=== PATIENT | female | born 1990 | race Caucasian/White ===

== ENCOUNTER → 2017-01-24 | Outpatient (CLI) | payer OTHER ==
[2017-01-24 14:16] LABS: BASO % 0.9 % (0.0-1.0); EOS # 0.2 K/mm3 (0.0-0.50); EOS % 4.2 % (0.0-3.0); LYMPH # 1.8 K/mm3 (1.5-6.5); LYMPH % 34.6 % (24.0-44.0); MEAN CORPUSCULAR HEMOGLOBIN 30.2 pg (27.0-33.0); MEAN CORPUSCULAR HGB CONC 33.7 g/dl (32.0-36.5); MEAN CORPUSCULAR VOLUME 89.6 fl (80.0-96.0); MONO # 0.2 K/mm3 (0.0-0.8); MONO % 4.6 % (0.0-5.0); NEUTROPHILS # 2.8 K/mm3 (1.8-7.7); NEUTROPHILS % 53.1 % (36.0-66.0); RED CELL DISTRIBUTION WIDTH 12.9 % (11.5-14.5); WHITE BLOOD COUNT 5.2 K/mm3 (4.0-10.0)
[2017-01-24 14:39] LABS: VITAMIN B12 LEVEL 688 PG/ML (247-911)
[2017-01-24 14:43] LABS: ALBUMIN 3.9 GM/DL (3.2-5.2); ALBUMIN/GLOBULIN RATIO 1.11 (1.00-1.93); ALKALINE PHOSPHATASE 53 U/L (45-117); ALT/SGPT 19 U/L (12-78); ANION GAP 7 MEQ/L (8-16); AST/SGOT 18 U/L (15-37); BILIRUBIN,TOTAL 0.6 MG/DL (0.2-1.0); BLOOD UREA NITROGEN 18 MG/DL (7-18); CALCIUM LEVEL 8.6 MG/DL (8.5-10.1); CARBON DIOXIDE LEVEL 28 MEQ/L (21-32); CHLORIDE LEVEL 103 MEQ/L (98-107); CHOLESTEROL LEVEL 194 MG/DL (<200); CREATININE FOR GFR 0.83 MG/DL (0.55-1.02); FREE T4 0.82 NG/DL (0.76-1.46); GLOMERULAR FILTRATION RATE > 60.0 (>60); GLUCOSE, FASTING 80 MG/DL (70-105); POTASSIUM SERUM 3.9 MEQ/L (3.5-5.1); SODIUM LEVEL 138 MEQ/L (136-145); TOTAL IRON BINDING CAPACITY 339 UG/DL (250-450); TOTAL PROTEIN 7.4 GM/DL (6.4-8.2); TRIGLYCERIDES LEVEL 70 MG/DL (<150)
== END ==
LOC: EDBD 11:44 → M LRY 11:44
PROVIDERS: ATTEND Physician Assistant
DX: Z00.00 Encounter for general adult medical examination without abnormal findings (principal); K51.90 Ulcerative colitis, unspecified, without complications

== ENCOUNTER → 2017-08-07 | Outpatient (CLI) | payer OTHER ==
[2017-08-07 10:52] LABS: HEMATOCRIT 32.4 % (36.0-47.0); MEAN CORPUSCULAR VOLUME 94.2 fl (80.0-96.0); PLATELET COUNT, AUTOMATED 279 10^3/uL (150-450); RED BLOOD COUNT 3.44 10^6/uL (4.00-5.40); RED CELL DISTRIBUTION WIDTH 14.1 % (11.5-14.5); WHITE BLOOD COUNT 10.1 10^3/uL (4.0-10.0)
[2017-08-07 11:14] LABS: GLUCOSE CHALLENGE TEST 1 HOUR 84 MG/DL (LESS THAN 140)
== END ==
LOC: M SMT 08:05
DX: Z36.89 Encounter for other specified antenatal screening (principal); Z3A.00 Weeks of gestation of pregnancy not specified
CPT/HCPCS: 82950

== ENCOUNTER → 2017-10-13 | Outpatient (REF) | payer OTHER | LOC: M SFHCLERA 10:57 | DX: R50.9 Fever, unspecified (principal) ==

== ENCOUNTER → 2017-10-19 | Outpatient (REF) | payer OTHER | LOC: M LAB REF 16:56 | DX: Z34.83 Encounter for supervision of other normal pregnancy, third trimester (principal); Z3A.00 Weeks of gestation of pregnancy not specified | CPT/HCPCS: 87186 ==

== ENCOUNTER 2017-11-10 16:01 | Inpatient (IN) | payer OTHER ==
[2017-11-10] MEDS: FENTANYL/ROPIVACAINE/NACL BAG 200 ML EPIDURAL
[2017-11-10] MEDS: LACTATED RINGER'S 1000 ML IV (17:02)
[2017-11-10] MEDS: miSOPROStol 50 MCG 1/2 TAB (S0191) SL (17:18)
[2017-11-10 17:31] LABS: HEMOGLOBIN 10.2 g/dl (12.0-15.5); MEAN CORPUSCULAR HEMOGLOBIN 30.4 pg (27.0-33.0); MEAN CORPUSCULAR VOLUME 89.3 fl (80.0-96.0); PLATELET COUNT, AUTOMATED 306 10^3/uL (150-450); RED BLOOD COUNT 3.36 10^6/uL (4.00-5.40); RED CELL DISTRIBUTION WIDTH 13.5 % (11.5-14.5); WHITE BLOOD COUNT 11.1 10^3/uL (4.0-10.0)
[2017-11-10] MEDS: LR 1,000 ML IV (20:45)
[2017-11-10] MEDS: PENICILLIN G POTASSIUM IV 5 MU in D5W MINI-BAG PLUS 100 ML IV (21:00)
[2017-11-10] MEDS ORDERED: PENICILLIN G POTASSIUM 5 MU VIAL As Ordered (21:01)
[2017-11-10] MEDS: OXYTOCIN DRIP 30 UNITS in APPROPRIATE DILUENT 1 EA IV (22:18)
[2017-11-10] MEDS ORDERED: FENTANYL 2MCG/ML ROPIVACAINE 0.2% IN 0.9% NACL 200ML IVBAG As Ordered (23:40)
[2017-11-10] MEDS ORDERED: ePHEDrine SULFATE 25 MG/5 ML(5MG/ML) SYRINGE IV (23:43)
[2017-11-10] MEDS ORDERED: ONDANSETRON 4MG/2ML VIAL (J2405) IV (23:43)
[2017-11-10] MEDS ORDERED: REFRIGERATOR IV KEYS XX (23:43)
[2017-11-10] MEDS ORDERED: diphenhydrAMINE INJ 50MG/ML VIAL (J1200) IV (23:43)
[2017-11-10] MEDS ORDERED: NALOXONE INJ 0.4 MG/1 ML VIAL (J2310) IV (23:43)
[2017-11-10] MEDS ORDERED: LACTATED RINGER'S 1000 ML IV (23:43)
[2017-11-10] MEDS ORDERED: EPIDURAL/PCA KEYS XX (23:43)
[2017-11-10] MEDS ORDERED: EPIDURAL COMMENT XX (23:43)
[2017-11-11] MEDS: PENICILLIN G POTASSIUM IV 2.5 MU in D5W 100 ML IV (01:00)
[2017-11-11] MEDS ORDERED: METHYLERGONOVINE MALEATE 0.2 MG TAB PO (03:30)
[2017-11-11] MEDS ORDERED: DIBUCAINE 1% OINTMENT 30GM TOP (03:30)
[2017-11-11] MEDS ORDERED: MOM 30ML SUSPENSION UDC PO (03:30)
[2017-11-11] MEDS ORDERED: DOCUSATE SODIUM 100 MG CAP PO (03:30)
[2017-11-11] MEDS: IBUPROFEN 800 MG TAB PO ×2 (08:08→18:16)
[2017-11-11] MEDS: PRENATAL VITAMINS CHEWABLE TABLET PO (08:08)
[2017-11-11] MEDS: ACETAMINOPHEN 500 MG TAB PO (14:28)
[2017-11-11] MEDS: MEASLES,MUMPS,RUBELLA VACCINE INJ (MMR-II) (90707) SC (15:17)
[2017-11-11] MEDS: RHOGAM 300 MCG (1500 IU) INJ (J2790) IM (15:17)
[2017-11-12] MEDS: IBUPROFEN 800 MG TAB PO (05:59)
[2017-11-12] MEDS: PRENATAL VITAMINS CHEWABLE TABLET PO (07:47)
== END 2017-11-12 17:15 | disposition home or self-care (01) | DRG 775 ==
LOC: M LDI 16:01 → M OBS 11-11 05:54
PROVIDERS: Advanced Practice Midwife
PROC: 3E0DXGC Introduction of Other Therapeutic Substance into Mouth and Pharynx, External Approach (ICD-10-PCS; 2017-11-10)
PROC: 10E0XZZ Delivery of Products of Conception, External Approach (ICD-10-PCS; principal; 2017-11-11)
PROC: 10907ZC Drainage of Amniotic Fluid, Therapeutic from Products of Conception, Via Natural or Artificial Opening (ICD-10-PCS; 2017-11-11)
DX: O48.0 Post-term pregnancy (principal); Z37.0 Single live birth; K90.0 Celiac disease; Z79.899 Other long term (current) drug therapy; O99.824 Streptococcus B carrier state complicating childbirth; Z3A.40 40 weeks gestation of pregnancy; Z90.49 Acquired absence of other specified parts of digestive tract; O99.62 Diseases of the digestive system complicating childbirth

== ENCOUNTER → 2017-12-22 | Outpatient (CLI) | payer OTHER ==
[2017-12-22 18:16] LABS: FREE T4 0.84 NG/DL (0.76-1.46); THYROID STIMULATING HORMONE 0.682 uIU/ML (0.358-3.740)
[2017-12-22 18:17] LABS: TOTAL 25(OH) VITAMIN D 26.1 NG/ML (30.0-100.0)
== END ==
LOC: M SMT 14:38
DX: F32.89 Other specified depressive episodes (principal)
CPT/HCPCS: 84443

== ENCOUNTER → 2018-04-18 | Outpatient (REF) | payer OTHER | LOC: M LAB REF 17:28 | DX: Z12.4 Encounter for screening for malignant neoplasm of cervix (principal) | CPT/HCPCS: G0123 ==

== ENCOUNTER 2018-07-13 10:02 | Day surgery (SDC) | payer OTHER ==
[~2018-07-13] VITALS: Ht 162.6 cm; Wt 43.1 kg
[~2018-07-13 10:02] MED LIST: IBUP-1114 PO; MAPA500T2 PO; NS 1,000 ML IV ONE; PRENTAB9 PO; RANI150T PO
[2018-07-13] MEDS ORDERED: fentaNYL 100 MCG/2 ML INJECTION (J3010) As Ordered ONE (10:56)
[2018-07-13] MEDS ORDERED: PROPOFOL 500 MG/50 ML VIAL As Ordered ONE (10:56)
[2018-07-13] MEDS ORDERED: LIDOCAINE 2% INJ 100 MG/5 ML SDV (FOR ANES.) As Ordered ONE (10:59)
--- NOTE | 2018-07-13 12:52 | ROOR ---
Patient Name: Vero Altman Procedure Date: 07/13/2018 11:57 AM Date of : 08/21/1989 Age: 28 Room: [facility] Gender: Female Note Status: Finalized Procedure: Upper GI endoscopy Indications: Suspected celiac disease, Follow-up of celiac disease Providers: Sam Antunez MD Referring MD: ARIEL MORAN MD Requesting Provider: Medicines: Monitored Anesthesia Care Complications: No immediate complications. Procedure: Pre-Anesthesia Assessment: - Prior to the procedure, a History and Physical was performed, and patient medications and allergies were reviewed. The patient is competent. The risks and benefits of the procedure and the sedation options and risks were discussed with the patient. All questions were answered and informed consent was obtained. Patient identification and proposed procedure were verified by the physician, the nurse and the anesthesiologist in the procedure room. Mental Status Examination: alert and oriented. Airway Examination: normal oropharyngeal airway and neck mobility. Respiratory Examination: clear to auscultation. CV Examination: normal. Prophylactic Antibiotics: The patient does not require prophylactic antibiotics. Prior Anticoagulants: The patient has taken no previous anticoagulant or antiplatelet agents. ASA Grade Assessment: II - A patient with mild systemic disease. After reviewing the risks and benefits, the patient was deemed in satisfactory condition to undergo the procedure. The anesthesia plan was to use monitored anesthesia care (MAC). Immediately prior to administration of medications, the patient was re-assessed for adequacy to receive sedatives. The heart rate, respiratory rate, oxygen saturations, blood pressure, adequacy of pulmonary ventilation, and response to care were monitored throughout the procedure. The physical status of the patient was re-assessed after the procedure. The Endoscope was introduced through the mouth, and advanced to the second part of duodenum. The upper GI endoscopy was accomplished without difficulty. The patient tolerated the procedure well. Findings: LA Grade A (one or more mucosal breaks less than 5 mm, not extending between tops of 2 mucosal folds) esophagitis with no bleeding was found 40 cm from the incisors. Biopsies were taken with a cold forceps for histology. Verification of patient identification for the specimen was done by the physician and nurse using the patient's name, date and medical record number. Estimated blood loss was minimal. The Z-line was irregular and was found 40 cm from the incisors. Patchy mild inflammation characterized by erythema and granularity was found in the gastric body and in the gastric antrum. Biopsies were taken with a cold forceps for Helicobacter pylori testing. The duodenal bulb, second portion of the duodenum, third portion of the duodenum and fourth portion of the duodenum were normal. Biopsies for histology were taken with a cold forceps for evaluation of celiac disease. Impression: - LA Grade A reflux esophagitis. Biopsied. - Z-line irregular, 40 cm from the incisors. - Gastritis. Biopsied. - Normal duodenal bulb, second portion of the duodenum, third portion of the duodenum and fourth portion of the duodenum. Biopsied. Recommendation: - Patient has a contact number available for emergencies. The signs and symptoms of potential delayed complications were discussed with the patient. Return to normal activities tomorrow. Written discharge instructions were provided to the patient. - Resume previous diet. - Continue present medications. - Await pathology results. - Based on the biopsy results you will receive a phone call from GI clinic in 2-3 weeks to review the pathology results AND/OR your results will be faxed to your Primary care physician. - Return to primary care physician. Sam Antunez MD Sam Antunez MD 07/13/2018 12:51:35 PM This report has been signed electronically. Number of Addenda: 0 Note Initiated On: 07/13/2018 11:57 AM Estimated Blood Loss: Estimated blood loss was minimal.
[2018-07-13 13:10] VITALS: BP 106/55
--- NOTE | 2018-07-13 13:27 | ROOR ---
Patient Name: Veor Altman Procedure Date: 07/13/2018 11:58 AM Date of : 08/21/1989 Age: 28 Room: [facility] Gender: Female Note Status: Finalized Procedure: Colonoscopy Indications: Follow-up of ulcerative colitis Providers: Sam Antunez MD Referring MD: ARIEL MORAN MD Requesting Provider: Medicines: Monitored Anesthesia Care Complications: No immediate complications. Procedure: Pre-Anesthesia Assessment: - Prior to the procedure, a History and Physical was performed, and patient medications and allergies were reviewed. The patient is competent. The risks and benefits of the procedure and the sedation options and risks were discussed with the patient. All questions were answered and informed consent was obtained. Patient identification and proposed procedure were verified by the physician, the nurse and the anesthesiologist in the procedure room. Mental Status Examination: alert and oriented. Airway Examination: normal oropharyngeal airway and neck mobility. Respiratory Examination: clear to auscultation. CV Examination: normal. Prophylactic Antibiotics: The patient does not require prophylactic antibiotics. Prior Anticoagulants: The patient has taken no previous anticoagulant or antiplatelet agents. ASA Grade Assessment: II - A patient with mild systemic disease. After reviewing the risks and benefits, the patient was deemed in satisfactory condition to undergo the procedure. The anesthesia plan was to use monitored anesthesia care (MAC). Immediately prior to administration of medications, the patient was re-assessed for adequacy to receive sedatives. The heart rate, respiratory rate, oxygen saturations, blood pressure, adequacy of pulmonary ventilation, and response to care were monitored throughout the procedure. The physical status of the patient was re-assessed after the procedure. The Colonoscope was introduced through the anus and advanced to the terminal ileum, with identification of the appendiceal orifice and IC valve. The colonoscopy was performed without difficulty. The patient tolerated the procedure well. The quality of the bowel preparation was good. The terminal ileum, ileocecal valve, appendiceal orifice, and rectum were photographed. Scope insertion time was 3 minutes. Scope withdrawal time was 9 minutes. The total duration of the procedure was 12 minutes. Findings: The perianal and digital rectal examinations were normal. The terminal ileum appeared normal. Normal mucosa was found in the entire colon. Biopsies for histology were taken with a cold forceps from the right colon, left colon, sigmoid colon and rectum for evaluation of microscopic colitis. Verification of patient identification for the specimen was done by the physician and nurse using the patient's name, date and medical record number. Estimated blood loss was minimal. Non-bleeding external and internal hemorrhoids were found during retroflexion. The hemorrhoids were medium-sized. Impression: - The examined portion of the ileum was normal. - Normal mucosa in the entire examined colon. Biopsied. - Non-bleeding external and internal hemorrhoids. Recommendation: - Patient has a contact number available for emergencies. The signs and symptoms of potential delayed complications were discussed with the patient. Return to normal activities tomorrow. Written discharge instructions were provided to the patient. - Resume previous diet. - Continue present medications. - Await pathology results. - Repeat colonoscopy at age 49 for screening purposes. - Return to GI clinic in [facility] (address [address], [address], [place] [address]) in 4 -- 6 weeks. Please call GI clinic @ [phone] for apppointment date and time. - Return to primary care physician. Sam Antunez MD Sam Antunez MD 07/13/2018 1:27:09 PM This report has been signed electronically. Number of Addenda: 0 Note Initiated On: 07/13/2018 11:58 AM Estimated Blood Loss: Estimated blood loss was minimal.
== END 2018-07-13 13:18 | disposition home or self-care (01) ==
LOC: M OPP 10:02
PROVIDERS: ATTEND Internal Medicine Gastroenterology
DX: K64.8 Other hemorrhoids (principal); K51.90 Ulcerative colitis, unspecified, without complications; K21.0 Gastro-esophageal reflux disease with esophagitis; K22.8 Other specified diseases of esophagus; K29.70 Gastritis, unspecified, without bleeding; K90.0 Celiac disease; Z91.011 Allergy to milk products; Z91.018 Allergy to other foods
CPT/HCPCS: 43239; 45380; 88305; J3010

== ENCOUNTER → 2018-10-03 | Outpatient (CLI) | payer OTHER ==
[~2018-10-03] MED LIST changes: -NS 1,000 ML IV ONE
--- NOTE | 2018-10-03 14:24 | REP ---
ULTRASOUND RIGHT BREAST: Real-time sonographic evaluation of the right breast performed for small palpable abnormality and pain between 10 and 11 o'clock. Ultrasound of that area shows dense fibroglandular tissue without a discrete cystic or solid nodule. IMPRESSION: ACR 2 benign. Dense fibroglandular tissue seen in the 9 to 11 o'clock region of the right breast. No discrete cystic or solid nodule. A negative ultrasound should not deter biopsy if there is a clinically suspicious palpable mass present. Electronically Signed by Rj Roper MD 10/04/2018 12:26 P
== END ==
LOC: M RAD 11:00
PROVIDERS: ATTEND Advanced Practice Midwife
DX: N64.4 Mastodynia (principal)

== ENCOUNTER → 2018-12-19 | Outpatient (CLI) | payer OTHER ==
[2018-12-19 17:33] LABS: HCG, SERUM QUALITATIVE NEGATIVE (NEGATIVE)
== END ==
LOC: M SMT 11:36
PROVIDERS: ATTEND Advanced Practice Midwife
DX: N92.6 Irregular menstruation, unspecified (principal)

== ENCOUNTER → 2018-12-24 | Outpatient (CLI) | payer OTHER ==
--- NOTE | 2018-12-24 15:13 | REP ---
REASON: Metrorrhagia. PRIORS: None. Transvesical and transvaginal imaging was obtained. The uterus measures 9.1 x 5 x 6.3 cm. The parenchymal echo pattern is within normal limits. The endometrial echo complex is unremarkable appearing measuring 4 mm in its greatest thickness. Right ovary measures 2.7 x 2.2 x 2.8 cm and is within normal limits with an RI of 0.36. Left ovary measures 5.8 x 3.3 x 4.1 cm. Within the substance of the left ovary there is a 2.7 x 2.4 x 2.6 cm sized anechoic structure which exhibits posterior wall enhancement and increased through transmission. This is without papillary projections or septations and is consistent with a simple cyst. The left ovarian RI is 0.51. Urinary bladder measures 11 x 9 x 11 cm. IMPRESSION: Simple left ovarian cyst as described above. Electronically Signed by Steven Elkins DO 12/24/2018 04:48 P
== END ==
LOC: M RAD 12:10
PROVIDERS: ATTEND Advanced Practice Midwife
DX: N83.202 Unspecified ovarian cyst, left side (principal)

== ENCOUNTER → 2019-01-04 | Outpatient (CLI) | payer OTHER ==
--- NOTE | 2019-01-09 15:34 | DEXA ---
AP SPINE L1 - L4 0.987 -1.7 -1.7 LT FEMUR TOTAL 0.777 -1.8 -1.8 LT NECK 0.806 -1.7 -1.5 RT FEMUR TOTAL 0.783 -1.8 -1.7 RT NECK 0.761 -2.0 -1.8 TOTAL BODY TOTAL OTHER COMMENTS: There is low bone density of the spine and hips. The density of the spine has decreased 6.0% since 07/09/2014. The density of the left hip has decreased 2.9% since 07/11/2014. The density of the right hip has decreased 0.6% since 07/11/2014. The decreased density of the spine does represent a significant change. The decreased density of the left hip does represent a significant change. The decreased density of the right hip does not represent a significant change. FOLLOW-UP: Recommendation for the next bone density exam: 2 years. SAIMA
== END ==
LOC: M WHC 13:57
PROVIDERS: ATTEND Family Medicine
DX: M85.80 Other specified disorders of bone density and structure, unspecified site (principal)

== ENCOUNTER → 2019-04-09 | Outpatient (CLI) | payer OTHER ==
--- NOTE | 2019-04-10 10:30 | REP ---
MAXILLOFACIAL CT STUDY WITHOUT CONTRAST: HISTORY: Sinusitis. No comparison imaging. FINDINGS: Frontal sinuses are clear. There is moderate opacification of the anterior mid ethmoid air cells on the right. Minimal mucosal thickening is seen in the ethmoid air cells on the left. Sphenoid sinus is clear. Mastoid aeration is normal and symmetric. There is minimal mucosal thickening affecting the left maxillary sinus with the small mucous retention cyst along its superior wall. There is moderate mucosal thickening surrounding the right maxillary sinus. The ostiomeatal complex on the right is obscured and filled by mucosal thickening. On the left the OMC is patent. There are Glory cells bilaterally. These are small. The bony nasal septum is in the midline. Nasal turbinate soft tissues are unremarkable. No intraorbital or intracranial abnormality is seen. IMPRESSION: Polysinusitis changes. The right OMC is occluded by mucosal thickening. Bilateral Glory cells are seen. The right maxillary and right ethmoid air cells are most prominently affected. Electronically Signed by Mathew Terry MD 04/10/2019 11:17 A
== END ==
LOC: M RAD 17:14
PROVIDERS: ATTEND Otolaryngology
DX: J01.01 Acute recurrent maxillary sinusitis (principal); J34.89 Other specified disorders of nose and nasal sinuses

== ENCOUNTER → 2019-05-23 | Outpatient (CLI) | payer OTHER ==
--- NOTE | 2019-05-23 20:41 | REP ---
Focused right breast sonography: History: Mastodynia right breast. Area of the lump right axilla. Findings: In the area of the palpable lump, there is a 1.2 x 1.0 x 1.5 cm very superficial subdermal mobile lymph node with an echogenic hilus and a benign appearance. Its long axis is parallel to the skin. There are other lymph nodes visible in the right axilla which also have a normal appearance. These measure as follows: 1.0 x 0.9 x 0.5 cm, 1.1 x 0.9 x 0.4 cm, and 0.9 x 0.6 x 0.2 cm. Impression: BIRADS category 2 benign sonographic findings. Clinical follow-up is advised.
== END ==
LOC: M WHC 10:22
PROVIDERS: ATTEND Advanced Practice Midwife
DX: R92.8 Other abnormal and inconclusive findings on diagnostic imaging of breast (principal); N64.4 Mastodynia

== ENCOUNTER → 2019-06-14 | Outpatient (CLI) | payer OTHER ==
[~2019-06-14] MED LIST changes: +CLAR10CA3 PO
--- NOTE | 2019-06-17 09:19 | REP ---
Focused right breast/axillary ultrasound: History: Breast lump on right side at 10 o'clock position. Comparison sonography May 23, 2019. Findings: Scanning is performed in the area of the palpable lump in the right axilla region. There is an oval-shaped hypoechoic area with echogenic center consistent with a normal lymph node. Its dimensions today are 1.3 x 1.1 x 0.3 cm. It is felt to be unchanged from the comparison sonogram. No suspicious features. Impression: BIRADS category 2 sonographic findings.
== END ==
LOC: M WHC 13:40
PROVIDERS: ATTEND Surgery
DX: N63.11 Unspecified lump in the right breast, upper outer quadrant (principal)

== ENCOUNTER 2019-06-26 08:02 | Day surgery (SDC) | payer OTHER ==
[~2019-06-26] VITALS: Ht 162.6 cm; Wt 42.6 kg
[~2019-06-26 08:02] MED LIST changes: +ACETAMINOPHEN 1000MG 100ML IV BTL (OFIRMEV) (J0131 PER 10MG) As Ordered ONE; +LIDOCAINE 2% INJ 100 MG/5 ML SDV (FOR ANES.) As Ordered ONE; +LR 1,000 ML IV SCH; +MIDAZOLAM INJ 2 MG/2 ML VIAL (J2250) As Ordered ONE; +ONDANSETRON 4MG/2ML VIAL (J2405) As Ordered ONE; +ROCURONIUM BROMIDE 50 MG/5 ML VIAL As Ordered ONE; +SUGAMMADEX SODIUM 500 MG/5 ML VIAL (BRIDION) As Ordered ONE; +dexameTHASONE 4 MG/ML 1ML VIAL (J1100) As Ordered ONE; +dexameTHASONE 4 MG/ML 1ML VIAL (J1100) IV ONE; +fentaNYL 100 MCG/2 ML INJECTION (J3010) As Ordered ONE; +propofoL 200 MG/20 ML VIAL As Ordered ONE
[2019-06-26] MEDS ORDERED: METHYLENE BLUE 0.5% (5MG/ML) 10 ML AMP (PROVAYBLUE)(Q9968 PER 1MG) As Ordered ONE (09:17)
[2019-06-26] MEDS ORDERED: SODIUM CHLORIDE 0.9% NASAL GEL 15GM (AYR) As Ordered ONE (09:17)
[2019-06-26] MEDS ORDERED: EPINEPHrine 1MG/ML INJ 30ML MD-VIAL As Ordered ONE (09:17)
[2019-06-26] MEDS ORDERED: LIDOCAINE W/EPINEPHRINE 1% 20ML VIAL As Ordered ONE (09:17)
[2019-06-26] MEDS ORDERED: ePHEDrine SULFATE 25 MG/5 ML(5MG/ML) SYRINGE As Ordered ONE (10:09)
[2019-06-26] MEDS ORDERED: PHENYLephrine HCL 500 MCG/5 ML (100MCG/ML) SYRINGE (J2370) As Ordered ONE ×2 (10:09→10:13)
[2019-06-26] MEDS ORDERED: dexameTHASONE 4 MG/ML 1ML VIAL (J1100) As Ordered ONE (10:23)
[2019-06-26] MEDS ORDERED: LIDOCAINE 2% INJ 100 MG/5 ML SDV (FOR ANES.) As Ordered ONE (11:25)
[2019-06-26] MEDS ORDERED: ONDANSETRON 4MG/2ML VIAL (J2405) As Ordered ONE (11:57)
[2019-06-26] MEDS ORDERED: LR 1,000 ML IV SCH ×2 (12:15)
[2019-06-26] MEDS ORDERED: fentaNYL 100 MCG/2 ML INJECTION (J3010) IV PRN (12:15)
[2019-06-26] MEDS ORDERED: ONDANSETRON 4MG/2ML VIAL (J2405) IV PRN (12:15)
[2019-06-26] MEDS ORDERED: PERCOCET 5MG/325MG TAB PO PRN (12:15)
[2019-06-26] MEDS ORDERED: METOCLOPRAMIDE INJ 10MG/2ML VIAL (J2765) As Ordered ONE (12:18)
[2019-06-26] MEDS ORDERED: METOCLOPRAMIDE INJ 10MG/2ML VIAL (J2765) IV PRN (12:30)
[2019-06-26] MEDS ORDERED: PROMETHAZINE INJ 25 MG/ML VIAL (J2550) IV PRN (12:30)
[2019-06-26] MEDS ORDERED: PERCOCET 5MG/325MG TAB As Ordered ONE (13:50)
[2019-06-26 14:45] VITALS: BP 116/55
== END 2019-06-26 15:05 | disposition home or self-care (01) ==
LOC: M SDC 08:02
PROVIDERS: ATTEND Otolaryngology
DX: J32.9 Chronic sinusitis, unspecified (principal); K21.9 Gastro-esophageal reflux disease without esophagitis; M81.0 Age-related osteoporosis without current pathological fracture; K51.90 Ulcerative colitis, unspecified, without complications; F41.9 Anxiety disorder, unspecified; F32.9 Major depressive disorder, single episode, unspecified; Z79.899 Other long term (current) drug therapy; K90.0 Celiac disease; K90.41 Non-celiac gluten sensitivity
CPT/HCPCS: 31255; 31267; 81025; 88305; C2625; J0131; J1100; J2250; J2370; J2405; J2765; J3010; Q9968

== ENCOUNTER → 2019-07-16 | Outpatient (REF) | payer OTHER ==
[~2019-07-16] MED LIST changes: -ACETAMINOPHEN 1000MG 100ML IV BTL (OFIRMEV) (J0131 PER 10MG) As Ordered ONE; -LIDOCAINE 2% INJ 100 MG/5 ML SDV (FOR ANES.) As Ordered ONE; -LR 1,000 ML IV SCH; -MIDAZOLAM INJ 2 MG/2 ML VIAL (J2250) As Ordered ONE; -ONDANSETRON 4MG/2ML VIAL (J2405) As Ordered ONE; -ROCURONIUM BROMIDE 50 MG/5 ML VIAL As Ordered ONE; -SUGAMMADEX SODIUM 500 MG/5 ML VIAL (BRIDION) As Ordered ONE; -dexameTHASONE 4 MG/ML 1ML VIAL (J1100) As Ordered ONE; -dexameTHASONE 4 MG/ML 1ML VIAL (J1100) IV ONE; -fentaNYL 100 MCG/2 ML INJECTION (J3010) As Ordered ONE; -propofoL 200 MG/20 ML VIAL As Ordered ONE
== END ==
LOC: M LAB REF 12:56
PROVIDERS: ATTEND Physician Assistant Medical
DX: J01.90 Acute sinusitis, unspecified (principal)

== ENCOUNTER → 2020-04-13 | Outpatient (CLI) | payer OTHER ==
[~2020-04-13] MED LIST changes: +CELE20TA PO; +LIDOCAINE 1% MDV 20ML VIAL As Ordered ONE; +SODIUM BICARBONATE 8.4% INJ 50MEQ 50 ML VIAL As Ordered ONE
[2020-04-13 13:46] VITALS: BP 104/60
--- NOTE | 2020-04-14 08:12 | REP ---
INDICATION: LT SCAPULA NODULE. COMPARISON: None. TECHNIQUE: The procedure was performed by Frances Weaver [facility], under the direct supervision of Dr. Terry. The risks and benefits of the procedure were explained to the patient and an informed consent was obtained both verbally and written. Directly prior to the start of the procedure a formal time-out was completed in the procedure room. FINDINGS: Using ultrasound guidance the left upper back lymph node was localized. The skin was prepped and draped in a sterile fashion. Five mL of buffered lidocaine was used as a local anesthetic. Using ultrasound guidance a 25 gauge needle was inserted and advanced into the left upper back lymph node. Eight FNA specimens were obtained. Four specimens were sent to our lab here, and remaining 4 were sent out in RPMI solution, for further testing The patient tolerated the procedure well and there were no immediate complications. After the appropriate amount of monitored convalescence the patient was discharged from the department. IMPRESSION: 1. Ultrasound-guided left upper back lymph node FNA. <Electronically signed by Frances Weaver > 04/13/20 1719 <Electronically signed by Nav Terry > 04/14/20 [id number]
== END ==
LOC: M IRPRO 12:17
PROVIDERS: ATTEND Surgery
DX: R89.8 Other abnormal findings in specimens from other organs, systems and tissues (principal); R22.2 Localized swelling, mass and lump, trunk; Z79.899 Other long term (current) drug therapy

== ENCOUNTER → 2020-07-17 | Outpatient (CLI) | payer OTHER ==
[~2020-07-17] MED LIST changes: -LIDOCAINE 1% MDV 20ML VIAL As Ordered ONE; -SODIUM BICARBONATE 8.4% INJ 50MEQ 50 ML VIAL As Ordered ONE
[2020-07-17 16:41] LABS: C REACTIVE PROTEIN QUANTITATIV < 0.30 MG/DL (0.00-0.30); FERRITIN 10 NG/ML (8-252); IRON (FE) 55 UG/DL (50-170); PERCENT SATURATION 14.7 % (13.2-45.0); TOTAL IRON BINDING CAPACITY 373 UG/DL (250-450)
== END ==
LOC: M LAB 15:22
PROVIDERS: ATTEND Internal Medicine Gastroenterology
DX: K51.911 Ulcerative colitis, unspecified with rectal bleeding (principal)

== ENCOUNTER → 2020-07-19 | Outpatient (REF) | payer OTHER ==
[2020-07-29 14:09] LABS: CALPROTECTIN STOOL 28 ug/g (0-120); FATS NEUTRAL Normal (.); FATS TOTAL Normal (.); PANCREATIC ELASTASE STOOL >500 (>200)
== END ==
LOC: M LAB REF 14:09
PROVIDERS: ATTEND Internal Medicine Gastroenterology
DX: K51.911 Ulcerative colitis, unspecified with rectal bleeding (principal)

== ENCOUNTER → 2020-12-02 | Outpatient (CLI) | payer OTHER ==
--- NOTE | 2020-12-02 15:28 | REPVR ---
PROCEDURE INFORMATION: Exam: CT Maxillofacial Without Contrast, Sinus Exam date and time: 12/02/2020 2:31 PM Age: 31 years old Clinical indication: Mass, lump, or swelling; Other: Nasal; Additional info: Ost nasal pharnyx mass / lump swelling neck TECHNIQUE: Imaging protocol: CT Maxillofacial without contrast. Focus on the sinuses. Radiation optimization: All CT scans at this facility use at least one of these dose optimization techniques: automated exposure control; mA and/or kV adjustment per patient size (includes targeted exams where dose is matched to clinical indication); or iterative reconstruction. COMPARISON: CT Maxilofacial w/out contrast 04/09/2019 5:28 PM FINDINGS: The soft tissues of the neck were not included on this examination Frontal sinuses: Normal. No air-fluid levels. Ethmoid air cells: Normal. No air-fluid levels. Sphenoid sinuses: Normal. No air-fluid levels. Maxillary sinuses: Mucosal thickening left maxillary sinus. Mild mucosal thickening both maxillary sinuses, left greater than right. Postoperative changes related to bilateral maxillary antrostomy. Nasal cavity/Septum: Unremarkable. Orbital cavity: Orbits are normal. Globes are unremarkable. Bones/joints: Persistent meitopic cranial suture, normal variant Soft tissues: Unremarkable. Dental: Impacted wisdom teeth lower right mandible and upper left maxilla. IMPRESSION: Minimal mucosal thickening noted in the maxillary sinuses bilaterally. No acute findings. Electronically signed by: Yanira Escobar On 12/02/2020 15:27:20 PM
== END ==
LOC: M RAD 13:41
PROVIDERS: ATTEND Physician Assistant Medical
DX: R22.1 Localized swelling, mass and lump, neck (principal)

== ENCOUNTER → 2020-12-22 | Outpatient (CLI) | payer OTHER ==
[2020-12-22 16:06] LABS: BASO # 0.1 10^3/uL (0.0-0.2); BASO % 1.1 % (0.0-1.0); EOS # 0.1 10^3/uL (0.0-0.5); EOS % 2.3 % (0.0-3.0); HEMATOCRIT 36.3 % (36.0-47.0); HEMOGLOBIN 11.8 g/dl (12.0-15.5); LYMPH # 1.8 10^3/uL (1.5-5.0); LYMPH % 31.6 % (24.0-44.0); MEAN CORPUSCULAR HEMOGLOBIN 29.1 pg (27.0-33.0); MEAN CORPUSCULAR HGB CONC 32.5 g/dl (32.0-36.5); MEAN CORPUSCULAR VOLUME 89.4 fl (80.0-96.0); MONO # 0.4 10^3/uL (0.0-0.8); MONO % 6.8 % (2.0-8.0); NEUTROPHILS # 3.3 10^3/uL (1.5-8.5); PLATELET COUNT, AUTOMATED 285 10^3/uL (150-450); RED BLOOD COUNT 4.06 10^6/uL (4.00-5.40); WHITE BLOOD COUNT 5.6 10^3/uL (4.0-10.0)
[2020-12-22 16:39] LABS: ERYTHROCYTE SEDIMENTATION RATE 6 mm/hr (0-20)
[2020-12-22 17:28] LABS: IMMUNOGLOBULIN E 12.3 IU/ML (<100); IMMUNOGLOBULIN G 1220 MG/DL (681-1648)
== END ==
LOC: M LAB 15:43
PROVIDERS: ATTEND Allergy & Immunology Allergy
DX: D84.9 Immunodeficiency, unspecified (principal)